=== PATIENT | female | born 1975 | race Caucasian/White ===

== ENCOUNTER 2017-12-29 09:13 | Outpatient (CLI) | payer OTHER ==
--- NOTE | 2017-12-29 11:27 | US ---
EXAM: Transvaginal and transabdominal pelvic ultrasound HISTORY: Enlarged uterus COMPARISON: None TECHNIQUE: Transvaginal and transabdominalpelvic ultrasound were performed. Transvaginal ultrasound was performed to better evaluate the structures. Limited Doppler was provided. FINDINGS: The uterus measures 7.0 x 2.4 x 3.9 cm. The endometrium measures 0.2 cm in thickness. Cer vix is normal in appearance. The right ovary measures 2.8 x 2.0 x 1.7 cm. There is normal color Doppler flow. There are multiple anechoic cysts present. The largest measuring point a by 0.6 x 0.6 cm. The left ovary measures 2.2 x 1.3 x 1.4 cm. There is normal color Doppler flow. Multiple anechoic cys ts are present with the largest measuring 0.6 x 0.8 x 0.9 cm. IMPRESSION: 1. The uterus with measurements as above with no focal abnormality. 2. Multiple bilateral ovarian cysts with the largest evaluated above.
== END 2017-12-29 09:14 | disposition home or self-care (01) ==
LOC: RAD 09:13
PROVIDERS: ATTEND Obstetrics & Gynecology
DX: N85.2 Hypertrophy of uterus (principal)

== ENCOUNTER 2018-01-05 14:55 | Outpatient (CLI) | payer OTHER | END 2018-01-05 14:56 | disposition home or self-care (01) | LOC: RAD 14:55 | PROVIDERS: ATTEND Obstetrics & Gynecology | DX: Z12.31 Encounter for screening mammogram for malignant neoplasm of breast (principal) ==

== ENCOUNTER 2018-05-08 08:41 | Outpatient (CLI) | payer OTHER | END 2018-05-08 08:42 | disposition home or self-care (01) | LOC: LAB 08:41 | PROVIDERS: ATTEND Family Medicine | DX: J01.20 Acute ethmoidal sinusitis, unspecified (principal) | CPT/HCPCS: 87070 ==